=== PATIENT | female | born 2005 | race Caucasian/White ===

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

== ENCOUNTER → 2024-09-17 | Outpatient (CLI) | payer MEDICAID, SELFPAY ==
[2024-09-17 15:16] LABS: Absolute Lymphocyte Count 2.64 X10^3/uL (0.83-4.51); Absolute Neutrophil Count 5.3 X10^3/uL (2.0-7.7); Basophil# 0.05 X10^3/uL; Basophil% 0.6 % (0-1); Eosinophil# 0.25 X10^3/uL; Eosinophils% 2.8 % (0-5); Hematocrit 39.6 % (37-47); Hemoglobin 13.1 g/dL (12.0-15.0); Lymphocyte # 2.64 X10^3/ul (0.83-4.51); Lymphocyte % 29.4 % (19-41); Mean Corp Hgb Conc 33.1 g/dL (32-36); Mean Corpuscular Hgb 28.7 pg (27.0-32.0); Mean Corpuscular Volume 86.8 fL (81-99); Mean Platelet Vol. 9.3 fl (6.2-12.0); Monocyte# 0.78 X10^3/uL; Monocyte% 8.7 % (0-10); NRBC Flagged by Analyzer 0 % (0-5); Neutrophil # 5.25 X10^3/uL (2.7-7.7); Neutrophil % 58.3 % (47-70); Platelet Count 446 K/mm3 (150-450); RBC Distribution Width CV 13.2 % (11.6-14.6); RBC Distribution Width SD 41.2 fl (35.1-43.9); Red Blood Count 4.56 M/mm3 (4.2-5.4)
[2024-09-17 20:28] LABS: ALB/GLOB Ratio 1.4 RATIO (0.9-2.4); AST(SGOT) 25 U/L (<=31); Alanine Aminotransfer ALT/SGPT 29 U/L (<=34); Albumin, Serum 4.2 g/dL (3.5-5.0); Alkaline Phosphatase 73 U/L (35-104); Anion Gap 12 (5-15); BUN 10 mg/dL (4-19); BUN/Creat Ratio 13.5 RATIO (10-20); Calcium,Total 9.6 mg/dL (7.6-11.0); Carbon Dioxide 22.5 mmol/L (21.0-32.0); Chloride 103 mmol/L (98-108); Creatinine, Serum 0.75 mg/dL (0.70-1.20); EST Glomerular Filtration Rate 116 (>60); Globulin 3.1 g/dL (2.2-4.2); Glucose 70 mg/dL (70-99); Potassium 4.1 mmol/L (3.3-5.1); Protein, Total 7.2 g/dL (5.9-8.4); Sodium Level 138 mmol/L (133-145); Total Bilirubin 0.28 mg/dL (0.00-1.30); Vitamin B12 440 pg/mL (180-914); Vitamin D,25 Hydroxy 11.6 ng/mL (30-100)
== END | disposition home or self-care (01) ==
LOC: MFPLAB 14:04
PROVIDERS: PCP Family Medicine; Referring Provider Family Medicine; Visit Provider Family Medicine
DX: R53.83 Other fatigue (principal)
CPT/HCPCS: 36415; 80053; 82306; 82607; 84439; 84443; 85025

== ENCOUNTER 2024-09-27 01:18 | Emergency (ER) | payer MEDICAID, SELFPAY ==
[2024-09-27 01:19] VITALS: BP 145/101; PULSE 98; RESP 16; TEMP 36.6; O2SAT 99; BMI 53.2
--- NOTE | 2024-09-27 01:46 | EX.ED.DYSGE1 ---
HPI History of Present Illness Chief Complaint: Nausea/Vomiting Informant: patient and friend Narrative Narrative: Patient is a 19-year-old female with past medical history of anxiety and depression as well as ADHD. She states she takes Lexapro and BuSpar for her symptoms. She reports she has been taking her medications as directed and denies missing doses which could lead to withdrawal symptoms. She states that this evening after eating not shows that she developed sensation of nausea. She reports that she tried not to throw up and while trying to hold down her emesis had a sensation of feeling flushed lightheaded and dizzy and reports a near syncopal event. After this occurred she did have 1 bout of vomiting. She states it was nonbilious or bloody. She denies any history of cardiac dysrhythmia. She reports that there has been no loose stool diarrhea and she denies any known sick contacts. She denies any ingestion of illicit substance and she denies any concern for . She states however she is never felt the near syncopal event before and therefore called EMS to bring her in for evaluation [facility] Medical History (Updated 09/27/24 @ 02:[address] Davis Romeo, ) Acute myringitis, left ear Vitamin D deficiency Seizures Generalized headaches Emotional problems Asthma Allergies Blepharitis of left upper eyelid Conjunctivitis, left eye Right otitis media Asthma exacerbation Home Medications ?Medication ?Instructions ?Recorded ?Last Taken ?Type bupropion HCl 150 mg 24 hr tablet, 150 mg PO QDAY #90 tabs 09/02/24 Unknown Rx extended release escitalopram oxalate 10 mg tablet 10 mg PO QDAY #30 tabs 09/02/24 Unknown Rx cholecalciferol (vitamin D3) 1,250 1,250 mcg PO QWEEK 09/27/24 Unknown History mcg (50,000 unit) capsule ondansetron 4 mg disintegrating 4 mg PO TID PRN nausea and 09/27/24 Unknown Rx tablet vomiting #21 tabs Allergy/AdvReac Type Severity Reaction Status Date / Time Penicillins (PCN) Allergy Rash Verified 09/27/24 01:22 Family History Other Autism FH: mental illness Seizures Surgical History History of appendectomy Social History Smoking Status: Never smoker alcohol intake: never substance use type: does not use what type of physical activity do you participate in: walking ROS ROS ED Constitutional Constitutional ED: Denies chills or fever(s) Eyes Eyes: Denies change in vision ENT ENT ED: Denies sore throat Cardiovascular Cardiovascular: Reports palpitations, racing heartbeat and other Details: Positive near syncope ; Denies chest pain Respiratory/Chest Respiratory/Chest: Denies cough or dyspnea Gastrointestinal Gastrointestinal: Reports abdominal pain, nausea and vomiting; Denies diarrhea Genitourinary Genitourinary ED: Denies dysuria Musculoskeletal Musculoskeletal: Denies myalgias Integumentary Denies rash Neurologic Neurologic: Denies headache(s) Psychiatric Psychiatric: Reports anxiety and depression Hematologic/Lymphatic Hematologic/Lymphatic: Denies easy bleeding or easy bruising EXAM Physical Exam Const Vital Signs: 09/27/24 01:19 Temperature 97.8 F Temperature Source Oral Pulse Rate 98 Respiratory Rate 16 Blood Pressure 145/101 H Blood Pressure Mean 115 Pulse Ox 99 Positive well nourished, well developed and obese General Appearance ED: well developed; Negative for pallor Nutritional Appearance: obese HEENT Reports moist mucous membranes HEENT Narrative: Mucous membranes are moist No tongue or lip swelling no oral lesions no airway edema or compromise No secondary findings in the posterior pharynx to suggest infection No tongue or cheek biting to suggest seizure activity Eyes PERRL and EOMs intact bilaterally General Eye ED: Negative for scleral icterus Neck supple Neck Narrative: No nuchal rigidity or meningeal signs noted Chest Wall palpation of chest normal Resp normal respiratory effort and clear to auscultation bilaterally Cardio regular rate and regular rhythm Rate: other Other Details: Heart is regular rate and rhythm without murmurs rubs or gallop Radial and carotid pulses are equal and symmetric GI non-distended and no masses GI Narrative: Abdomen is soft and nondistended with normal active bowel sounds. There is mild pain with palpation in the right upper quadrant. However no voluntary guarding or rigidity. Negative Franco sign. No pulsatile mass. Auscultation: normoactive bowel sounds Palpation: soft Extremity normal to inspection Extremity Narrative: No asymmetric edema no pitting edema negative Homans' sign bilaterally Neuro oriented x3, CN's II-XII intact bilaterally and no sensory deficits noted Neuro Narrative: GCS of 15 Cranial nerves II through XII are grossly intact without focal neurologic deficit No pronator drift no dysmetria no truncal ataxia NIH stroke scale score of 0 Sensorium / Orientation: alert Motor Exam: strength 5/5 throughout Psych Psych Narrative: Patient has a nervous/anxious affect Mood & Affect: anxious Skin no rashes or lesions noted and skin turgor normal General Skin Exam: Negative for jaundice or pallor MDM MDM MDM Narrative Medical decision making narrative: Patient arrived to the ER hypertensive but otherwise with stable vitals. She reported a bout of near syncope while trying to prevent emesis. Her history and exam is most consistent with near syncope secondary to a vasovagal response from retching. In the ER she is normal sinus rhythm and she does not have a history or family history of cardiac dysrhythmia so have low concern for this and do not feel the need for an EKG. she reported 1 episode of vomiting that was nonbilious and nonbloody and with 1 episode of vomiting concern for acute dehydration leading to acute kidney injury or clinically significant Sandie abnormalities is low as well. Her pain and symptoms did occur after eating not shows and she did have pain in the right upper quadrant as we discussed this could be biliary colic. With spontaneous improving symptoms I have low concern that this is acute cholecystitis especially as patient is afebrile. We discussed obtaining a CT scan with IV contrast as I cannot perform an ultrasound at this time a night to further assess the gallbladder and potential blood work to check liver enzymes as well. The patient states that she is a difficult stick and does not want to undergo an IV as it is not 100% necessary at this time. As I have low concern for acute pancreatitis or acute cholecystitis I agree that this is not 100% necessary and therefore should be given an order form for outpatient ultrasound to further assess her gallbladder. However at this time she has had no further bouts of vomiting her heart is regular rate and rhythm her neurologic exam is normal her abdomen is soft and nonsurgical. Therefore should be provided symptomatic care and is otherwise safe for discharge History & Record Review Discussion w/independent historian: Patient and Friend Discharge Plan Triage Chief Complaint: Nausea/Vomiting ED Provider: Davis Romeo Dx/Rx/DC Orders Clinical Impression: Nausea & vomiting, Palpitations, ADHD (attention deficit hyperactivity disorder), inattentive type, Anxiety and depression, Near syncope Instructions: Understanding Heart Palpitations, ED Near-Fainting- Vagal Reaction, ED Vomiting (Adult) Prescriptions: New ondansetron 4 mg tablet,disintegrating 4 mg PO TID PRN (Reason: nausea and vomiting) Qty: 21 0RF No Action escitalopram oxalate 10 mg tablet 10 mg PO QDAY Qty: 30 1RF bupropion HCl 150 mg tablet extended release 24 hr 150 mg PO QDAY Qty: 90 1RF cholecalciferol (vitamin D3) 1,250 mcg (50,000 unit) capsule 1,250 mcg PO QWEEK Other Ambulatory Orders: Gallbladder (Routine) Facility: [facility] - Location: [facility] Ordered By: Dr. Davis Romeo Primary Care Provider: Haresh Main Referrals: Haresh Main MD [Primary Care Provider] - Activity Restrictions/Additional Instructions: Your history and exam is consistent with vasovagal syncope from retching with your bouts of vomiting. As the symptoms did occur after eating not shows this could potentially be related to a gallbladder dysfunction. Please obtain your outpatient gallbladder ultrasound to further assess your symptoms and return to the ER should you have any further concerns. Print Language: Russian Disposition Disposition: Home, Self Care Discharge Date/Time: 09/27/24 01:58
[2024-09-27] MEDS: Ondansetron ODT 4 MG Tablet PO (01:55)
[2024-09-27] MEDS: LORazepam 1 MG Tablet PO (01:55)
== END 2024-09-27 01:58 | disposition home or self-care (01) ==
PROVIDERS: Emergency Provider Emergency Medicine; PCP Family Medicine; Visit Provider Emergency Medicine
DX: R11.2 Nausea with vomiting, unspecified (principal); R00.2 Palpitations; R55 Syncope and collapse; F41.9 Anxiety disorder, unspecified; F90.0 Attention-deficit hyperactivity disorder, predominantly inattentive type; F32.A Depression, unspecified; E66.9 Obesity, unspecified; E55.9 Vitamin D deficiency, unspecified; Z79.899 Other long term (current) drug therapy
CPT/HCPCS: 99285

== ENCOUNTER → 2024-10-02 | Outpatient (CLI) | payer MEDICAID, SELFPAY ==
[2024-10-02 12:11] LABS: Follicle Stimulating Hormone 2.9 mIU/mL; Luteinizing Hormone 4.4 mIU/mL
[2024-10-07 05:07] LABS: 17-Hydroxyprogesterone 29 ng/dL (.)
== END | disposition home or self-care (01) ==
LOC: MFPLAB 08:04
PROVIDERS: PCP Family Medicine; Referring Provider Family Medicine; Visit Provider Family Medicine
DX: E28.2 Polycystic ovarian syndrome (principal)
CPT/HCPCS: 36415; 83001; 83002; 83498; 84403

== ENCOUNTER 2024-10-10 22:19 | Emergency (ER) | payer MEDICAID, SELFPAY ==
[2024-10-10 22:23] VITALS: PULSE 100; RESP 22; TEMP 36.2; O2SAT 98; BMI 50.7
--- NOTE | 2024-10-10 22:44 | EX.ED.DYSGE1 ---
HPI History of Present Illness Chief Complaint: General Illness Informant: patient and friend Narrative Narrative: 19-year-old female with a history of anxiety, depression, ADHD on psychiatric medications states she ingested a weed gummy around 12 hours ago, for the last 1 or 2 hours she states she feels like she is coming down from her high and has been ticcing twitching her head and having waves of nausea. She is not used to ingesting these. Her friend ingested the same thing at the same time and is not having the symptoms but he is better used to using weed. Denies using any other substances. Does not have a history of tics without using substances. [facility] Medical History Acute myringitis, left ear Vitamin D deficiency Seizures Generalized headaches Emotional problems Asthma Allergies Blepharitis of left upper eyelid Conjunctivitis, left eye Right otitis media Asthma exacerbation Home Medications ?Medication ?Instructions ?Recorded ?Last Taken ?Type bupropion HCl 150 mg 24 hr tablet, 150 mg PO QDAY #90 tabs 09/02/24 Unknown Rx extended release escitalopram oxalate 10 mg tablet 10 mg PO QDAY #30 tabs 09/02/24 Unknown Rx cholecalciferol (vitamin D3) 1,250 1,250 mcg PO QWEEK 09/27/24 Unknown History mcg (50,000 unit) capsule ondansetron 4 mg disintegrating 4 mg PO TID PRN nausea and 09/27/24 Unknown Rx tablet vomiting #21 tabs Allergy/AdvReac Type Severity Reaction Status Date / Time Penicillins (PCN) Allergy Rash Verified 09/27/24 01:22 lactose (lactose intolerant) AdvReac Abd Verified 10/10/24 22:23 cramps/diarrhea Family History Other Autism FH: mental illness Seizures Surgical History History of appendectomy Social History Smoking Status: Never smoker alcohol intake: never substance use type: does not use what type of physical activity do you participate in: walking ROS ROS ED Constitutional Constitutional ED: Denies chills or fever(s) Eyes Eyes: Denies change in vision or diplopia ENT ENT ED: Denies rhinorrhea or sore throat Cardiovascular Cardiovascular: Denies chest pain or palpitations Respiratory/Chest Respiratory/Chest: Denies cough or dyspnea Gastrointestinal Gastrointestinal: Reports nausea; Denies abdominal pain, diarrhea or vomiting Genitourinary Genitourinary ED: Denies dysuria or hematuria Musculoskeletal Musculoskeletal: Denies back pain or neck pain Integumentary Denies abscess or rash Neurologic Neurologic: Reports as per HPI; Denies headache(s), paresthesias or weakness Psychiatric Psychiatric: Reports anxiety; Denies suicidal thoughts EXAM Physical Exam Const Vital Signs: 10/10/24 22:23 10/10/24 22:27 Temperature 97.1 F L Temperature Source Temporal Pulse Rate 100 Respiratory Rate 22 H Respiratory Effort Normal Respiratory Pattern Normal Pulse Ox 98 Oxygen Delivery Method Room Air Positive well nourished, well developed and obese General Appearance ED: well developed and NAD Nutritional Appearance: obese HEENT Reports moist mucous membranes normocephalic and atraumatic Eyes PERRL and EOMs intact bilaterally Neck full ROM and supple Resp normal respiratory effort and clear to auscultation bilaterally Cardio regular rate, regular rhythm and no murmurs GI non-tender and non-distended Auscultation: normoactive bowel sounds Palpation: soft Back/Spine no CVA tenderness General Back: other FROM Extremity normal to inspection General Extremety ED: Negative for edema, pulses abnormal or tenderness General Extremity: Negative for edema or pulses abnormal Neuro oriented x3, CN's II-XII intact bilaterally and no sensory deficits noted Neuro Narrative: Frequent tic present, mostly with head/neck. She is able to nod her head in affirmative and negative directions, which seems to exacerbate the tachycardia and same direction. Able to move hands and feet without difficulty and walk. Sensorium / Orientation: awake and alert Motor Exam: strength 5/5 throughout Skin no rashes or lesions noted and no wounds MDM MDM MDM Narrative Medical decision making narrative: Given the patient's psychiatric medications, there may be an interaction here with the that she took. I am giving her some ODT Zofran along with a dose of IM Ativan and Cogentin to combat any akathisia effects from her medications. These medications resolved her symptoms she is feeling much better. Advised to avoid illicit substances. Discharge Plan Triage Chief Complaint: General Illness ED Provider: Dima Mejia Dx/Rx/DC Orders Clinical Impression: Cannabis abuse Instructions: Understanding Synthetic Marijuana Prescriptions: No Action escitalopram oxalate 10 mg tablet 10 mg PO QDAY Qty: 30 1RF bupropion HCl 150 mg tablet extended release 24 hr 150 mg PO QDAY Qty: 90 1RF cholecalciferol (vitamin D3) 1,250 mcg (50,000 unit) capsule 1,250 mcg PO QWEEK ondansetron 4 mg tablet,disintegrating 4 mg PO TID PRN (Reason: nausea and vomiting) Qty: 21 0RF Primary Care Provider: Haresh Main Referrals: [facility] [Non-Staff] - As Needed (for addiction services, if needed) Print Language: Turkish Disposition Disposition: Home, Self Care
[2024-10-10] MEDS: Lorazepam 2 MG/ML WCH Syringe 1 MG IM (22:54)
[2024-10-10] MEDS: Ondansetron ODT 4 MG Tablet 8 MG PO (22:54)
[2024-10-10 23:47] VITALS: BP 106/47; PULSE 82; RESP 16; TEMP 36.6; O2SAT 96
== END 2024-10-10 23:51 | disposition home or self-care (01) ==
PROVIDERS: Emergency Provider Emergency Medicine; PCP Family Medicine; Visit Provider Emergency Medicine
DX: F12.10 Cannabis abuse, uncomplicated (principal); R11.0 Nausea; F41.9 Anxiety disorder, unspecified; F32.A Depression, unspecified; F90.9 Attention-deficit hyperactivity disorder, unspecified type; E55.9 Vitamin D deficiency, unspecified; E66.9 Obesity, unspecified; Z79.899 Other long term (current) drug therapy
CPT/HCPCS: 96372; 99283

== ENCOUNTER → 2024-12-28 | Outpatient (CLI) | payer MEDICAID, SELFPAY ==
[2024-12-28] MEDS: Zaleplon 5 MG Capsule PO (21:45)
== END | disposition home or self-care (01) ==
LOC: SL 20:05
PROVIDERS: PCP Family Medicine; Referring Provider Nurse Practitioner Family; Visit Provider Nurse Practitioner Family
DX: G47.10 Hypersomnia, unspecified (principal)
CPT/HCPCS: 95810

== ENCOUNTER 2024-12-29 15:31 | Outpatient (CLI) | payer MEDICAID, SELFPAY ==
[2024-12-29 17:49] LABS: Absolute Neutrophil Count 7.8 X10^3/uL (2.0-7.7); Basophil# 0.06 X10^3/uL; Basophil% 0.5 % (0-1); Eosinophil# 0.16 X10^3/uL; Eosinophils% 1.4 % (0-5); Hematocrit 40.4 % (37-47); Hemoglobin 13.2 g/dL (12.0-15.0); Lymphocyte % 21.3 % (19-41); Mean Corp Hgb Conc 32.7 g/dL (32-36); Mean Corpuscular Hgb 29.1 pg (27.0-32.0); Mean Platelet Vol. 9.8 fl (6.2-12.0); Monocyte# 0.79 X10^3/uL; NRBC Flagged by Analyzer 0 % (0-5); Neutrophil # 7.81 X10^3/uL (2.7-7.7); Neutrophil % 69.4 % (47-70); Platelet Count 409 K/mm3 (150-450); RBC Distribution Width CV 12.5 % (11.6-14.6); RBC Distribution Width SD 40.8 fl (35.1-43.9); Red Blood Count 4.54 M/mm3 (4.2-5.4); White Blood Count 11.3 K/mm3 (4.4-11.0)
[2024-12-29 18:35] LABS: ALB/GLOB Ratio 1.2 RATIO (0.9-2.4); AST(SGOT) 20 U/L (<=31); Alanine Aminotransfer ALT/SGPT 23 U/L (<=34); Albumin, Serum 3.9 g/dL (3.5-5.0); Alkaline Phosphatase 77 U/L (35-104); Anion Gap 11 (5-15); BUN 13 mg/dL (4-19); BUN/Creat Ratio 15.1 RATIO (10-20); Calcium,Total 9.2 mg/dL (7.6-11.0); Carbon Dioxide 24.2 mmol/L (21.0-32.0); Chloride 104 mmol/L (98-108); Creatinine, Serum 0.85 mg/dL (0.70-1.20); EST Glomerular Filtration Rate 101 (>60); Globulin 3.2 g/dL (2.2-4.2); Glucose 112 mg/dL (70-99); Potassium 4.3 mmol/L (3.3-5.1); Protein, Total 7.1 g/dL (5.9-8.4); Sodium Level 139 mmol/L (133-145); Total Bilirubin 0.23 mg/dL (0.00-1.30); Vitamin D,25 Hydroxy 52.3 ng/mL (30-100)
== END 2024-12-29 23:59 | disposition home or self-care (01) ==
LOC: MFPLAB 15:31
PROVIDERS: PCP Family Medicine; Referring Provider Family Medicine; Visit Provider Family Medicine
DX: E28.2 Polycystic ovarian syndrome (principal); E55.9 Vitamin D deficiency, unspecified
CPT/HCPCS: 36415; 80053; 82306; 85025

== ENCOUNTER 2025-01-07 03:49 | Emergency (ER) | payer MEDICAID, SELFPAY ==
[2025-01-07 03:50] VITALS: BP 115/67; PULSE 98; RESP 18; TEMP 36.7; O2SAT 98; BMI 51.0
[2025-01-07 04:46] VITALS: BP 118/100; PULSE 83; RESP 17; TEMP 36.7; O2SAT 99
== END 2025-01-07 04:48 | disposition home or self-care (01) ==
PROVIDERS: Emergency Provider Surgery; PCP Family Medicine; Visit Provider Surgery
DX: R11.0 Nausea (principal); R68.89 Other general symptoms and signs; R20.2 Paresthesia of skin; F41.9 Anxiety disorder, unspecified; F32.A Depression, unspecified; F90.9 Attention-deficit hyperactivity disorder, unspecified type; E28.2 Polycystic ovarian syndrome; J45.909 Unspecified asthma, uncomplicated; Z79.899 Other long term (current) drug therapy
CPT/HCPCS: 99283

== ENCOUNTER → 2025-01-19 | Outpatient (CLI) | payer MEDICAID, SELFPAY | END | disposition home or self-care (01) | LOC: SL 17:19 | PROVIDERS: PCP Family Medicine; Referring Provider Nurse Practitioner Family; Visit Provider Nurse Practitioner Family | DX: Z46.89 Encounter for fitting and adjustment of other specified devices (principal) ==

== ENCOUNTER 2025-06-24 09:35 | Emergency (ER) | payer MEDICAID, SELFPAY ==
[2025-06-24 09:36] VITALS: BP 128/81; PULSE 106; RESP 18; TEMP 36.7; O2SAT 99; BMI 51.2
--- NOTE | 2025-06-24 09:52 | EX.ED.DYSGE1 ---
HPI History of Present Illness Chief Complaint: Nausea/Vomiting Narrative Narrative: Patient is a 19-year-old female with a past medical history of PCOS, seizures, asthma, appendectomy who presented to the emergency department the chief complaint of abdominal pain nausea and vomiting. States that this has been going on for 5 hours now and has been vomiting every 30 minutes. Patient states that her sister was ill recently as well. [facility] Medical History PCOS (polycystic ovarian syndrome) Fatigue Acute myringitis, left ear Vitamin D deficiency Seizures Generalized headaches Emotional problems Asthma Allergies Blepharitis of left upper eyelid Conjunctivitis, left eye Right otitis media Asthma exacerbation Home Medications ?Medication ?Instructions ?Recorded ?Last Taken ?Type albuterol sulfate 90 mcg/actuation 2 puff inhalation Q4H PRN PRN 01/07/25 Unknown History aerosol inhaler shortness of breath or wheezing norgestimate 0.18 mg/0.215mg/0.25 1 tab PO DAILY 01/07/25 06/23/25 History mg-ethinyl estradiol 0.025 mg tablet (Mzr-Dt-Twodqa) ondansetron 4 mg disintegrating 4 mg PO Q8H PRN PRN Nausea #10 tabs 01/07/25 Unknown Rx tablet CPAP - Continuous Positive Airway 04/19/25 Unknown History Pressure([facility] INFORMATIONAL USE ONLY) bupropion HCl 150 mg 24 hr tablet, 150 mg PO QDAY #90 tabs 06/02/25 06/23/25 Rx extended release escitalopram oxalate 10 mg tablet 10 mg PO QDAY #90 tabs 06/02/25 06/23/25 Rx dicyclomine 20 mg tablet 20 mg PO TID PRN abdominal pain 06/24/25 Unknown Rx #20 tabs ondansetron 4 mg disintegrating 4 mg PO Q6H PRN nausea and 06/24/25 Unknown Rx tablet vomiting #20 tabs Allergy/AdvReac Type Severity Reaction Status Date / Time Penicillins (PCN) Allergy Rash Verified 06/24/25 09:37 lactose (lactose intolerant) AdvReac Abd Verified 06/24/25 09:37 cramps/diarrhea Family History Other Autism FH: mental illness Seizures Surgical History [place] teeth extracted History of appendectomy Social History adopted: Yes household members: family current occupational status: employed current occupation: [employer] Physical Smoking Status: Never smoker alcohol intake: never substance use type: does not use what type of physical activity do you participate in: walking ROS ROS ED ROS Narrative Constitutional: Complains of chills and whole body aches denies any fevers y Abdomen: Complains of abdominal pain, nausea vomiting and diarrhea : Denies urinary symptoms Neurological: Denies any numbness, weakness, tingling Musculoskeletal: Denies back pain Skin: Denies any rashes or lesions EXAM Physical Exam Narrative Exam Narrative: General: Patient was lying in bed resting comfortably did not appear to be in acute distress Head: Atraumatic, normocephalic Eyes: PERRL bilaterally, EOMI bilaterally, no conjunctival injection noted Neck: Soft, supple, trachea midline Cardiovascular: Patient tachycardic with a regular Respiratory: Clear to auscultation bilaterally Abdomen: Soft, nondistended, mild tenderness to palpation in the right lower and right upper quadrants no rebound or guarding on exam Extremities: +5/5 strength noted in the bilateral upper and lower extremity Neurological: Patient following commands that she was at [facility] the year is 2024 Skin: Warm, dry, intact no rashes or lesions noted Const Vital Signs: 06/24/25 09:36 06/24/25 11:54 Temperature 98.1 F Temperature Source Oral Pulse Rate 106 H 97 Respiratory Rate 18 Blood Pressure 128/81 H 123/66 H Blood Pressure Mean 96 85 Pulse Ox 99 98 Oxygen Delivery Method Room Air Room Air MDM MDM MDM Narrative Medical decision making narrative: Patient is a 19-year-old female who presented to the emergency department the chief complaint of nausea vomiting abdominal pain and not feeling well. On the differential diagnose includes but limited to cholecystitis, pancreatitis, although she states that she currently is on her menstrual cycle and has not been sexually active in a significant amount of time, viral gastroenteritis. Patient be given IV fluids and Zofran. Patient's leukocytosis was significant for a white blood count of 17,000, he was 14.7, plate count was noted be 439. Sodium normal 139, [place] 4.8, creatinine is normal at 0.89. Patient AST and ALT are 21 and 19 respectively lipase was normal at 16 test negative urinalysis reviewed and showed no evidence of infection. Patient CT abdomen pelvis IV contrast showed no acute pathology there is nonspecific hypoattenuating hepatic lesion at the region of the falciform ligament may reflect to focally fatty infiltration however recommending ultrasound in the outpatient setting patient was given a hard copy of this was advised to show her doctor these results for a follow-up ultrasound. Hepatomegaly noted. Tampon noted however she is on her menstrual cycle currently she states. Discussed results with the patient and she would like to go home she likely has a viral illness that her family ember also had recently. She is advised to continue supportive care pushing fluids using the prescriptions for Bentyl and Zofran as prescribed. She is encouraged to return with worsening symptoms or concerns. All question concerns answered she was discharged home in stable condition Lab Data Labs: Laboratory Results - last 24 hr 06/24/25 06/24/25 10:45 11:06 WBC 17.0 H RBC 5.17 Hgb 14.7 Hct 44.9 MCV 86.8 MCH 28.4 MCHC 32.7 RDW Std Deviation 39.1 RDW Coeff of Mervin 12.3 Plt Count 439 MPV 8.8 Immature Gran % (Auto) 0.400 Neut % (Auto) 93.4 H Lymph % (Auto) 2.7 L Simpson % (Auto) 2.9 Eos % (Auto) 0.3 Baso % (Auto) 0.3 Absolute Neuts (auto) 15.9 H Absolute Lymphs (auto) 0.45 L Nucleated RBC % 0 Sodium 139 Potassium 4.8 Chloride 103 Carbon Dioxide 21.1 Anion Gap 15 BUN 17 Creatinine 0.89 Estim Creat Clear Calc 143.39 Est GFR (MDRD) Non-Af 95 BUN/Creatinine Ratio 18.7 Glucose 118 H Calcium 9.5 Total Bilirubin 0.34 AST 21 ALT 19 Alkaline Phosphatase 84 Total Protein 8.1 Albumin 4.5 Globulin 3.6 Albumin/Globulin Ratio 1.3 Lipase 16 Serum , Qual NEGATIVE Urine Color Yellow Urine Clarity Sl. Cloudy Urine pH 6.0 Ur Specific [place] 1.020 Urine Protein 15 H Urine Glucose (UA) Normal Urine Ketones Negative Urine Occult Blood Negative Urine Nitrite Negative Urine Bilirubin Negative Urine Urobilinogen Normal Ur Leukocyte Esterase Negative Urine RBC 0 SEEN Urine WBC 0 SEEN Ur Squamous Epith Cells 0-5 SEEN Urine Bacteria 0 SEEN Hyaline Casts 0-5 SEEN Fine Granular Casts 0-5 SEEN Urine Mucus 1+ Radiography Diagnostic Testing: Clinical Impression(s) from Imaging Studies Abdomen/Pelvis CT 06/24/25 12:23 IMPRESSION: 1. No acute pathology in the abdomen or pelvis. 2. Nonspecific hypoattenuating hepatic lesion near region of the falciform ligament may reflect focal fatty infiltration. An ultrasound of the liver would help for further characterization. 3. Hepatomegaly. 4. Additional details as discussed in the body of the report. Reading Location: [facility] Discharge Plan Triage Chief Complaint: Nausea/Vomiting ED Provider: Hernando Spann Dx/Rx/DC Orders Clinical Impression: Viral gastroenteritis, Depression, Diarrhea, Nausea & vomiting, Body aches Prescriptions: New ondansetron 4 mg tablet,disintegrating 4 mg PO Q6H PRN (Reason: nausea and vomiting) Qty: 20 0RF dicyclomine 20 mg tablet 20 mg PO TID PRN (Reason: abdominal pain) Qty: 20 0RF No Action bupropion HCl 150 mg tablet extended release 24 hr 150 mg PO QDAY Qty: 90 1RF escitalopram oxalate 10 mg tablet 10 mg PO QDAY Qty: 90 1RF albuterol sulfate 90 mcg/actuation HFA aerosol inhaler 2 puff inhalation Q4H PRN PRN (Reason: shortness of breath or wheezing) norgestimate-ethinyl estradiol [Pwl-Dn-Jjgofh] 0.18/0.215/0.25 mg-0.025 mg tablet 1 tab PO DAILY ondansetron 4 mg tablet,disintegrating 4 mg PO Q8H PRN PRN (Reason: Nausea) Qty: 10 0RF (DME) CPAP - Continuous Positive Airway Pressure([facility] INFORMATIONAL USE ONLY) See Rx Instructions .Route .MEDSUPPLY Rx Instructions: AUTOCPAP 5-15 DME- DASCO MASK- MEDIUM RESMED N30 NASAL MASK Primary Care Provider: Haresh Main Referrals: Haresh Main MD [Primary Care Provider, Family Practice] Activity Restrictions/Additional Instructions: Follow-up with your doctor in the outpatient setting. Your blood work and your CT did not show any acute findings today. Use prescriptions as prescribed. Take the CT report with you to your doctors appointment so they can order the appropriate ultrasound of your liver. Return with worsening symptoms or any other concerns continue supportive care. Print Language: Yi Disposition Disposition: Home, Self Care
[2025-06-24 10:56] LABS: Hematocrit 44.9 % (37-47); Hemoglobin 14.7 g/dL (12.0-15.0); Immature Granulocytes Count 0.070 X10^3/uL (0.0-0.0); Mean Corp Hgb Conc 32.7 g/dL (32-36); Mean Corpuscular Volume 86.8 fL (81-99); Mean Platelet Vol. 8.8 fl (6.2-12.0); NRBC Flagged by Analyzer 0 % (0-5); POSITIVE DIFFERENTIAL YES; Platelet Count 439 K/mm3 (150-450); RBC Distribution Width CV 12.3 % (11.6-14.6); RBC Distribution Width SD 39.1 fl (35.1-43.9); Red Blood Count 5.17 M/mm3 (4.2-5.4); White Blood Count 17.0 K/mm3 (4.4-11.0)
[2025-06-24] MEDS: 0.9% Normal Saline (1000mL) 1,000 ML 999 ML IV (11:01)
[2025-06-24 11:50] LABS: Lipase 16 U/L (13-75)
[2025-06-24 11:54] VITALS: BP 123/66; PULSE 97; O2SAT 98
[2025-06-24 11:54] LABS: AST(SGOT) 21 U/L (<=31); Alanine Aminotransfer ALT/SGPT 19 U/L (<=34); Albumin, Serum 4.5 g/dL (3.5-5.0); Alkaline Phosphatase 84 U/L (35-104); Anion Gap 15 (5-15); BUN 17 mg/dL (4-19); BUN/Creat Ratio 18.7 RATIO (10-20); Calcium,Total 9.5 mg/dL (7.6-11.0); Carbon Dioxide 21.1 mmol/L (21.0-32.0); Chloride 103 mmol/L (98-108); Estimated Creatinine Clearance 143.39 ml/min (50-250); Globulin 3.6 g/dL (2.2-4.2); Glucose 118 mg/dL (70-99); Potassium 4.8 mmol/L (3.3-5.1)
[2025-06-24 11:58] LABS: Red Blood Cells-Urine 0 SEEN /hpf (0-5)
[2025-06-24 12:08] LABS: Color, Urine Yellow (Yellow); Glucose, Dipstick Normal (Normal); Ketone-Dipstick Negative (Negative); Leukocyte Esterase-Dipstick Negative /ul (Negative); Nitrite-Dipstick Negative (Negative); Occult Blood-Urine Negative /ul (Negative); Protein-Dipstick 15 mg/dl (Negative); Specific Gravity, Urine 1.020 (1.002-1.030); Urine Bilirubin Dipstick Negative (Negative)
[2025-06-24 12:10] LABS: Internal QC Validated? YES +Cl - CLEAR BKGD; Pregnancy, Serum, hCG Quali. NEGATIVE Negative
[2025-06-24 12:19] LABS: Fine Granular Cast- Urine 0-5 SEEN /lpf (0-5); Mucous, Urine 1+ /hpf (<or=2+); Squamous Epithelial Cells - UA 0-5 SEEN /hpf (5-10)
--- NOTE | 2025-06-24 12:23 | CT_ITS ---
PROCEDURE: ABDOMEN/PELVIS W IV CONT ONLY 06/24/2025 REASON FOR EXAM: Clinical history of right lower quadrant pain TECHNIQUE: Procedure Code: [id number] Modality: CT Procedure: ABDOMEN/PELVIS W IV CONT ONLY Coronal and Sagittal reconstruction series were provided. CONTRAST: Isovue-300 VOLUME: 90 mL One or more dose reduction techniques were used (e.g., Automated exposure control, adjustment of the mA and/or kV according to patient size, use of iterative reconstruction technique. RADIATION DOSE SUMMARY: DLP: 1439.65 mGycm COMPARISON: CT abdomen/pelvis 04/15/2023 FINDINGS: Lower chest: Lung bases are clear. Liver: Hepatomegaly. There is a hypoattenuating hepatic lesion near the region of the falciform ligament which is nonspecific but may reflect focal fatty infiltration. No enhancing lesion. Gallbladder and biliary ducts: Unremarkable gallbladder. Normal caliber intrahepatic and common bile ducts. Pancreas:Fatty infiltration of the pancreas. No ductal dilatation or mass. No peripancreatic fluid. Spleen: Unremarkable. Adrenal glands: Unremarkable. Kidneys and ureters: Normal renal size, morphology, and enhancement. No nephroureterolithiasis, hydroureteronephrosis, or renal mass. Urinary bladder: Unremarkable. GI: Unremarkable stomach and duodenum. Normal caliber small bowel and large bowel. No evidence of bowel obstruction. Appendix: Appendectomy. Peritoneum: No ascites. Small fat containing umbilical hernia. Lymph nodes: No lymphadenopathy. Vasculature: No abdominal aortic aneurysm. Reproductive organs: Limited evaluation on CT. The uterus is present and unremarkable. Tubular structure in the vaginal canal compatible with a menstrual tampon. Musculoskeletal and soft tissues: No aggressive osseous lesions. Small Schmorl's nodes in the lower thoracic spine.Unremarkable soft tissues. CT/Abdomen/Pelvis W IV Cont ONLY IMPRESSION: 1. No acute pathology in the abdomen or pelvis. 2. Nonspecific hypoattenuating hepatic lesion near region of the falciform liga ment may reflect focal fatty infiltration. An ultrasound of the liver would help for further characterization. 3. Hepatomegaly. 4. Additional details as discussed in the body of the report. Reading Location: [id number]
[2025-06-24 13:00] VITALS: BP 133/25; PULSE 120; RESP 16; TEMP 36.6; O2SAT 98
[2025-06-24 13:46] VITALS: BP 133/25; PULSE 113; RESP 1; TEMP 36.6; O2SAT 98
== END 2025-06-24 14:04 | disposition home or self-care (01) ==
PROVIDERS: Emergency Provider Emergency Medicine; PCP Family Medicine; Visit Provider Emergency Medicine
DX: A08.4 Viral intestinal infection, unspecified (principal); F32.A Depression, unspecified; R16.0 Hepatomegaly, not elsewhere classified; R11.2 Nausea with vomiting, unspecified; R19.7 Diarrhea, unspecified; J45.909 Unspecified asthma, uncomplicated
CPT/HCPCS: 74177; 80053; 81001; 83690; 84703; 85025; 96361; 96374; 96375; 99285; Q9967; A4216; J2405